=== PATIENT | female | born 1980 | race Caucasian/White ===

== ENCOUNTER → 2023-08-15 10:42 | Outpatient (REF) | payer OTHER, SELFPAY | LOC: HWWDC 10:42 | PROVIDERS: ATTENDING PHYSICIAN Family Medicine | DX: Z12.31 Encounter for screening mammogram for malignant neoplasm of breast (principal) | CPT/HCPCS: 77063; 77067 ==

== ENCOUNTER → 2024-09-13 14:36 | Outpatient (REF) | payer OTHER, SELFPAY | LOC: HWWDC 14:36 | PROVIDERS: ATTENDING PHYSICIAN Internal Medicine; FAMILY PHYSICIAN Family Medicine | DX: Z12.31 Encounter for screening mammogram for malignant neoplasm of breast (principal) | CPT/HCPCS: 77063; 77067 ==

== ENCOUNTER 2025-03-14 17:54 | Emergency (ER) | payer OTHER, SELFPAY ==
[2025-03-14 17:58] VITALS: BP 136/64
[2025-03-14 18:21] LABS: Hematocrit 38.9 % (37.0-47.0); Hemoglobin 12.8 g/dL (12.0-16.0); Mean Corp Hgb Conc. 32.9 g/dL (33.0-37.0); Mean Corpuscular Volume 92.6 fL (81.0-99.0); Nucleated Red Blood Cells % 0 %; Platelet Count 393 10^3/uL (130-400); Red Cell Dist. Width 13.2 % (11.5-14.5)
[2025-03-14 18:38] LABS: HCG, Serum Qualitative Screen Negative
[2025-03-14 18:40] LABS: ALT (SGPT) 29 U/L (0-35); AST (SGOT) 32 U/L (14-36); Albumin 4.6 g/dl (3.5-5.0); Alkaline Phosphatase 62 U/L (38-126); Blood Urea Nitrogen 11 mg/dl (7-17); Calcium 9.8 mg/dl (8.4-10.2); Carbon Dioxide 26 mmol/L (22-30); Chloride 103 mmol/L (98-107); Glucose 80 mg/dl (70-99); Potassium 4.3 mmol/L (3.5-5.1); Sodium 135 mmol/L (135-145); Total Protein 7.3 g/dl (6.3-8.2); eGFR > 60.00
--- NOTE | 2025-03-14 20:46 | ED.GENMED ---
History of Present Illness
General
Chief Complaint: Fatigue
Time Seen by Provider: 03/14/25 20:00
History of Present Illness
History of Present Illness:
Nestor is a 44-year-old female with past medical history of anxiety, ADHD, hypertension who presents complaining of shortness of breath that began this morning while walking through [employer] after dropping her daughter for preschool. She went home and
relax for the rest of the day and then after picking her daughter up the shortness of breath returned. Not associated with any chest pain, paresthesias, numbness, nausea, vomiting.
Past History
Past History
ED Past Medical History: None
ED Past Surgical History: None
Phy Exam
General Physical Exam
General Presentation: well appearing and no apparent distress
General Skin: warm and dry
General Habitus: normal
General Mental: alert
General Hydration: appears well hydrated
ENT Exam
ENT Exam: EOMI, pharynx normal, neck supple and normocephalic
Eye Exam
Eye Exam: PERRL, cornea clear and conjunctiva normal
Cardiovascular Exam
Cardiovascular Exam: regular rate/rhythm, no edema, no murmur and normal peripheral pulses
Pulmonary Exam
Pulmonary Exam: lungs clear, no respiratory distress, no rales, no crackles, no rhonchi, no stridor, no wheezing and no cough
Gastrointestinal Exam
Gastrointestinal Exam: normal bowel sounds, non tender, soft, no organomegaly, no pulsatile mass and non distended
Neurological Exam
Neurological Exam: alert, oriented x3, no motor deficits and speech normal
Musculoskeletal Exam
Musculoskeletal Exam: full ROM and no edema
Skin Exam
Skin Exam: normal color, warm/dry, no rash and no petechia
Psychiatric Exam
Psychiatric Exam: normal mood/affect
Course
Orders/Labs/Results
Orders:
Orders
03/14/25 18:01
Electrocardiogram (*1) Urgent
Reason for Study: Shortness of Breath
03/14/25 18:02
EKG- Treatment ONCE
Test Result ONCE
03/14/25 18:08
Complete Blood Count/With Diff Urgent
Comprehensive Metabolic Panel Urgent
HCG, Serum Qualitative Screen Urgent
03/14/25 20:08
CR Chest - 2 Views Urgent
Comment:
Reason For Exam: SOB
Abnormal Lab Results
03/14/25
18:08
MCHC 32.9 L g/dL
(33.0-37.0)
Absolute Neuts (auto) 7.2 H 10^3/uL
(1.4-6.5)
Absolute Monos (auto) 0.7 H 10^3/uL
(0.1-0.6)
Lymphocytes % 17.9 L %
(20.5-51.1)
03/14/25 18:08
03/14/25 18:08
Vital Signs
Initial and Last Documented VS:
Initial Vital Signs
Temp Pulse Resp BP Pulse Ox
37.1 C 101 16 136/64 98
03/14/25 17:58 03/14/25 17:58 03/14/25 17:58 03/14/25 17:58 03/14/25 17:58
Last Documented Vital Signs
Temp Pulse Resp BP Pulse Ox
37.1 C 101 16 136/64 98
03/14/25 17:58 03/14/25 17:58 03/14/25 17:58 03/14/25 17:58 03/14/25 20:50
MDM/Problems Addressed
Differential Diagnosis Includes:
Lab work obtained and reviewed. No leukocytosis or abnormalities on CBC. All electrolytes within normal limits. Chest x-ray obtained and shows no evidence of any pulmonary pathology. Patient is no longer short of breath and maintaining
saturations on room air. She denies any chest pain or associated symptoms. Has been pain-free for several hours. Patient provides further history that she is only taking 1 dose of her Adderall daily instead of 2. Wonders if this is contributing
to her new onset of fatigue. Discussed that all Testing completed in the emergency department is reassuring. Return precautions discussed in detail
*Pulse Oximetry
SaO2: 98
Oxygen Mode of Delivery: Room air
Patient hypoxic: no
*Critical Care Note
Total Time (30-74mins, 75-104mins- exclusive of procedures): Not Applicable
ED Attending Note
-
Portions of this chart may have been created with voice recognition software.� Occasional wrong word or��sound alike� substitutions may have occurred due to the inherent limitations of voice recognition software.
Discharge Plan
Departure
Patient Disposition: Home (Routine Discharge)
Date of Disposition: 03/14/25
Time of Disposition: 22:31
Patient with high blood pressure during this ER visit?: No
Discharge Problem:
Anxiety, Shortness of breath, Stress at home
Instructions: Anxiety in adults - ED (DC)
Prescriptions:
No Action
dextroamphetamine-amphetamine [Adderall] 30 MG tablet
15 mg PO BID
Patient Comments:
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
budesonide-formoterol [Symbicort] 1 PUFF HFA aerosol inhaler
2 puff inhalation R DAILY
PNV no.95-ferrous fumarate-FA [] 1 EACH tablet
1 tab PO TID
coenzyme Q10 [CoQ-10] 100 mg Capsule
100 mg PO DAILY
sertraline [Zoloft] 50 mg Tablet
50 mg PO DAILY
cholecalciferol (vitamin D3) [Vitamin D3] 25 mcg (1,000 unit) Tablet
25 mcg PO DAILY
levothyroxine [Synthroid] 75 mcg Tablet
75 mcg PO DAILY
mometasone
1 cap intranasal BID
Rx Instructions:
Open capsule, dilute w 8 oz distilled water and NSS packets. Irrigate each nostril, as directed
acetyltyrosine-vitamin B6
1 tab PO DAILY
cetirizine [Zyrtec] 10 mg Tablet
10 mg PO DAILY
Vitamin C 100 mg Tablet
1 mg PO DAILY
ibuprofen 600 mg Tablet
600 mg PO Q6HPRN PRN (Reason: moderate pain/cramps) Qty: 0 0RF
acetaminophen 325 mg Tablet
650 mg PO Q4HPRN PRN (Reason: mild pain) Qty: 0 0RF
labetalol 200 mg Tablet
200 mg PO BID Qty: 0 0RF
Referrals:
Hola Gilliam MD [Family Provider, [facility]]
Activity Restrictions/Additional Instructions:
You were seen in the ER for shortness of breath. All testing has been negative for any acute problems. Chest x-ray showed no evidence of any injury or illness to your lungs. Blood work was all within normal limits. EKG was unremarkable. You
should follow-up with your primary care physician. We discussed resting when you feel stressed and only doing what you feel out for you. We also talked about considering restarting therapy in addition to taking your medications. Please return to
the ER if you develop any new shortness of breath, chest pain or any other concerning symptom.
Interventions
Interventions:
*General Assessment Last Done: 03/14/25 20:30
*Neglect/Abuse Screening Last Done: 03/14/25 20:30
*ED COVID-19 Vaccine History Last Done: 03/14/25 20:30
*ED Influenza Vaccine History Last Done: 03/14/25 20:30
[facility] Risk Assessment Tool Last Done: 03/14/25 17:54
*Risk Screen - Suicide (C-SSRS) Last Done: 03/14/25 17:58
Discharge Date and Time
Print Language: SPANISH
[2025-03-14 21:00] VITALS: BP 129/77
== END 2025-03-14 23:11 | disposition home or self-care (01) ==
LOC: EMR 17:54
PROVIDERS: Emergency Medicine; EMERGENCY PHYSICIAN Emergency Medicine; FAMILY PHYSICIAN Family Medicine
DX: F41.9 Anxiety disorder, unspecified (principal); R06.02 Shortness of breath; I10 Essential (primary) hypertension; F90.9 Attention-deficit hyperactivity disorder, unspecified type; T43.626A Underdosing of amphetamines, initial encounter; Z91.148 Patient's other noncompliance with medication regimen for other reason
CPT/HCPCS: 99284; 71046; 80053; 84703; 85025; 93005